=== PATIENT | male | born 1985 | race Hispanic/Latino ===

== ENCOUNTER 2022-07-22 11:09 | Inpatient (IN) | payer OTHER ==
[~2022-07-22] VITALS: Ht 170.2 cm; Wt 87.5 kg
[2022-07-22 11:48] LABS: BASOPHILS % (AUTO) 0.2 % (0.0-5.0); EOSINOPHILS % (AUTO) 0.1 % (0.0-8.0); HEMATOCRIT 41.7 % (42-54); LYMPHOCYTES % (AUTO) 3.3 % (21.0-51.0); MEAN CORPUSCULAR HGB CONC 33.8 g/dL (32.0-36.0); MEAN CORPUSCULAR VOLUME 91.6 fL (79-99); MONOCYTES % (AUTO) 11.5 % (3.0-13.0); PLATELET COUNT (AUTO) 225 K/uL (130-400); RED BLOOD CELL COUNT(AUTO) 4.55 MIL/uL (4.50-6.20); RED CELL DISTRIBUTION WIDTH 12.9 % (11.0-15.5); WHITE BLOOD COUNT (AUTO) 18.4 K/uL (4.8-10.8)
[2022-07-22 11:59] LABS: CREATININE 0.8 mg/dL (0.5-1.5); POTASSIUM 3.3 mmol/L (3.5-5.1)
[2022-07-22 12:01] LABS: APPEARANCE,URINE CLEAR (CLEAR); BILIRUBIN,URINE NEGATIVE (NEGATIVE); COLOR,URINE YELLOW (YELLOW); GLUCOSE, URINE (UA) 200 mg/dL (NEGATIVE); KETONES,URINE 60 mg/dL (NEGATIVE); LEUKOCYTE ESTERASE ,URINE NEGATIVE Leu/uL (NEGATIVE); NITRATE,URINE NEGATIVE (NEGATIVE); OCCULT BLOOD,URINE MODERATE (NEGATIVE); PH,URINE 6.5 (5.0-8.0); PROTEIN,URINE 100 mg/dL (NEGATIVE)
[2022-07-22 12:04] LABS: ALBUMIN 3.1 g/dL (3.5-5.0); TOTAL PROTEIN, SERUM 7.8 g/dL (6.0-8.3)
[2022-07-22 12:08] LABS: AMPHET/METH SCREEN,URINE NEGATIVE (NEGATIVE); BARBITURATE SCREEN, URINE NEGATIVE (NEGATIVE); BENZODIAZEPINES SCREEN,URINE NEGATIVE (NEGATIVE); CANNABINOID SCREEN,URINE NEGATIVE (NEGATIVE); COCAINE SCREEN,URINE NEGATIVE (NEGATIVE); OPIATE SCREEN,URINE POSITIVE (NEGATIVE); PHENCYCLIDINE SCREEN,URINE NEGATIVE (NEGATIVE)
[2022-07-22 12:45] LABS: BACTERIA,URINE RARE /HPF (None Seen); MUCUS,URINE RARE LPF (None Seen); SQUAMOUS EPITHELIAL CELL,UR RARE /HPF (0-2)
[2022-07-22] MEDS ORDERED: MORPHINE 4 MG SYG IVP ONE (13:30)
[2022-07-22] MEDS ORDERED: LABETALOL 20MG VIAL IV ONE (16:00)
[2022-07-22] MEDS ORDERED: 0.9%NACL 1000ML 1,000 ML IV ONE (16:30)
[2022-07-22] MEDS ORDERED: KETOROLAC 30MG VIAL (30MG/ML) IVP ONE (16:30)
[2022-07-22 17:40] LABS: HDL CHOLESTEROL 23 mg/dL (29-71); LDL DIRECT 75 mg/dL (0-99); TRIGLYCERIDES 158 mg/dL (30-200)
[2022-07-22] MEDS ORDERED: IPRATROPIUM/ALBUTEROL SULFATE 3 ML SOLUTION IH PRN (18:00)
[2022-07-22] MEDS ORDERED: FOLIC ACID 5 MG/ML VIAL IV ONE (18:00)
[2022-07-22] MEDS ORDERED: ONDANSETRON 4MG INJ IVP PRN (18:00)
[2022-07-22 18:26] LABS: CHOLESTEROL 142 mg/dL (<200)
[2022-07-22] MEDS ORDERED: HYDRALAZINE 20MG/ML VIAL IV PRN (18:30)
[2022-07-22] MEDS: LACTATED RINGERS 1000ML 1,000 ML IV SCH (18:49)
[2022-07-22] MEDS: ZOSYN 3.375GM +NS 50ML IVPB SCH (18:49)
[2022-07-22] MEDS: 0.9%NACL 50ML IV SCH (18:49)
[2022-07-22] MEDS: PANTOPRAZOLE 40 MG/VIAL IVP SCH (18:49)
[2022-07-22] MEDS ORDERED: MORPHINE 2 MG SYG IVP PRN (19:00)
[2022-07-22] MEDS ORDERED: ALBUTEROL 0.083% 2.5 MG/3 ML INH IH PRN (19:00)
[2022-07-22] MEDS ORDERED: LACTATED RINGERS 1000ML 1,000 ML IV SCH (19:00)
[2022-07-22] MEDS ORDERED: THIAMINE HCL 100 MG/ML 2ML VIAL IVP SCH (19:00)
[2022-07-22 19:02] LABS: PROTHROMBIN TIME 10.9 SEC (9.6-11.6)
[2022-07-22 19:03] LABS: PARTIAL THROMBOPLASTIN TIME 30.3 SEC (26.3-35.5)
[2022-07-22] MEDS: HYDROMORPHONE 0.5 MG SYG (0.5MG/0.5ML) IVP PRN ×2 (19:07→21:43)
[2022-07-22] MEDS: ACETAMINOPHEN 500 MG TABLET PO PRN ×2 (19:07→23:25)
[2022-07-22 19:09] LABS: CREATININE 0.8 mg/dL (0.5-1.5); POTASSIUM 3.2 mmol/L (3.5-5.1)
[2022-07-22 19:12] LABS: MAGNESIUM 2.3 mg/dL (1.80-2.40)
[2022-07-22] MEDS ORDERED: 0.9%NACL 50ML IV SCH (19:30)
[2022-07-22] MEDS ORDERED: ZOSYN 3.375GM +NS 50ML IVPB SCH (19:30)
[2022-07-22] MEDS: POTASSIUM CHLORIDE 20MEQ/100ML 100 ML IV PRN (19:44)
[2022-07-22 19:57] LABS: CRP QUANTITATIVE 356.6 mg/L (0.00-9.0)
[2022-07-22 20:03] LABS: CHOLESTEROL 158 mg/dL (<200); HDL CHOLESTEROL 18 mg/dL (29-71); LDL DIRECT 75 mg/dL (0-99); TRIGLYCERIDES 174 mg/dL (30-200)
[2022-07-22 20:09] LABS: HEMOGLOBIN A1C 5.2 % (4.0-6.0)
[2022-07-22] MEDS: HYDRALAZINE 20MG/ML VIAL IV PRN (20:20)
[2022-07-22] MEDS ORDERED: LORAZEPAM 2 MG/ML 1 ML VIAL IVP ONE (20:30)
[2022-07-22] MEDS ORDERED: LORAZEPAM 0.5 MG TABLET PO ONE (20:30)
[2022-07-22] MEDS: KETOROLAC 15MG/ML VIAL (15MG/ML) IV PRN (20:44)
[2022-07-22] MEDS ORDERED: FAMOTIDINE 20MG VIAL IV SCH (21:00)
[2022-07-22] MEDS ORDERED: PHARMACY COMMUNICATION MISC PRN (21:30)
[2022-07-22] MEDS: NIFEDIPINE ER 30 MG TAB PO SCH (21:44)
[2022-07-23] VITALS (8 sets, daily range): BP systolic 135–171; BP diastolic 75–110
[2022-07-23] MEDS: HYDRALAZINE 25MG TABLET PO SCH ×3 (00:27→16:52)
[2022-07-23] MEDS: HYDROMORPHONE 0.5 MG SYG (0.5MG/0.5ML) IVP PRN ×6 (00:28→22:43)
[2022-07-23] MEDS: LACTATED RINGERS 1000ML 1,000 ML IV SCH ×4 (00:44→19:10)
[2022-07-23] MEDS: 0.9%NACL 50ML IV SCH ×3 (02:08→18:08)
[2022-07-23] MEDS: ZOSYN 3.375GM +NS 50ML IVPB SCH ×3 (02:08→18:08)
[2022-07-23] MEDS: KETOROLAC 15MG/ML VIAL (15MG/ML) IV PRN ×3 (02:36→16:43)
[2022-07-23] MEDS: HYDRALAZINE 20MG/ML VIAL IV PRN (03:14)
[2022-07-23] MEDS ORDERED: LABETALOL 20MG VIAL IV ONE (05:00)
[2022-07-23] MEDS: PANTOPRAZOLE 40 MG/VIAL IVP SCH ×2 (05:05→17:59)
[2022-07-23] MEDS ORDERED: HYDROMORPHONE 0.5 MG SYG (0.5MG/0.5ML) IVP ONE (05:40)
[2022-07-23 06:01] LABS: BASOPHILS % (AUTO) 0.2 % (0.0-5.0); EOSINOPHILS % (AUTO) 0.1 % (0.0-8.0); HEMATOCRIT 39.6 % (42-54); LYMPHOCYTES % (AUTO) 4.2 % (21.0-51.0); MEAN CORPUSCULAR HEMOGLOBIN 30.5 pg (27.0-33.0); MEAN CORPUSCULAR HGB CONC 33.1 g/dL (32.0-36.0); MEAN CORPUSCULAR VOLUME 92.3 fL (79-99); MONOCYTES % (AUTO) 12.3 % (3.0-13.0); NEUTROPHILS % (AUTO) 82.5 % (40.0-77.0); PLATELET COUNT (AUTO) 262 K/uL (130-400); RED BLOOD CELL COUNT(AUTO) 4.29 MIL/uL (4.50-6.20); RED CELL DISTRIBUTION WIDTH 13.2 % (11.0-15.5); WHITE BLOOD COUNT (AUTO) 17.5 K/uL (4.8-10.8)
[2022-07-23 06:16] LABS: ALBUMIN 2.8 g/dL (3.5-5.0); CREATININE 0.9 mg/dL (0.5-1.5); MAGNESIUM 2.3 mg/dL (1.80-2.40); POTASSIUM 3.4 mmol/L (3.5-5.1); TOTAL PROTEIN, SERUM 7.4 g/dL (6.0-8.3)
[2022-07-23] MEDS: POTASSIUM CHLORIDE 20MEQ/100ML 100 ML IV PRN (06:28)
[2022-07-23] MEDS: ACETAMINOPHEN 325 MG TAB PO PRN ×2 (15:00→22:03)
[2022-07-23] MEDS ORDERED: LORAZEPAM 2 MG/ML 1 ML VIAL IVP PRN (18:30)
[2022-07-23] MEDS: METOPROLOL TARTRATE 1 MG/ML 5ML VIAL IV SCH (19:00)
[2022-07-23] MEDS: NIFEDIPINE ER 30 MG TAB PO SCH (20:08)
[2022-07-24] MEDS: KETOROLAC 15MG/ML VIAL (15MG/ML) IV PRN ×3 (00:34→20:37)
[2022-07-24] MEDS: LACTATED RINGERS 1000ML 1,000 ML IV SCH (01:17)
[2022-07-24] MEDS: 0.9%NACL 50ML IV SCH ×3 (02:00→18:07)
[2022-07-24] MEDS: ZOSYN 3.375GM +NS 50ML IVPB SCH ×3 (02:37→18:07)
[2022-07-24] MEDS: METOPROLOL TARTRATE 1 MG/ML 5ML VIAL IV SCH ×3 (02:44→18:07)
[2022-07-24] MEDS: HYDROMORPHONE 0.5 MG SYG (0.5MG/0.5ML) IVP PRN ×2 (02:54→06:57)
[2022-07-24 04:09] VITALS: BP 146/63
[2022-07-24 05:51] LABS: HEMATOCRIT 39.1 % (42-54); MEAN CORPUSCULAR HEMOGLOBIN 30.3 pg (27.0-33.0); MEAN CORPUSCULAR HGB CONC 33.8 g/dL (32.0-36.0); MEAN CORPUSCULAR VOLUME 89.7 fL (79-99); RED BLOOD CELL COUNT(AUTO) 4.36 MIL/uL (4.50-6.20); RED CELL DISTRIBUTION WIDTH 13.2 % (11.0-15.5); WHITE BLOOD COUNT (AUTO) 18.5 K/uL (4.8-10.8)
[2022-07-24] MEDS: PANTOPRAZOLE 40 MG/VIAL IVP SCH ×2 (06:08→18:07)
[2022-07-24 06:10] LABS: ALBUMIN 2.6 g/dL (3.5-5.0); CREATININE 0.9 mg/dL (0.5-1.5); POTASSIUM 3.7 mmol/L (3.5-5.1); TOTAL PROTEIN, SERUM 7.3 g/dL (6.0-8.3)
[2022-07-24] MEDS ORDERED: LORAZEPAM 2 MG/ML 1 ML VIAL IVP PRN (07:30)
[2022-07-24] MEDS ORDERED: PHARMACY COMMUNICATION MISC PRN ×2 (07:30→14:00)
[2022-07-24] MEDS ORDERED: THIAMINE HCL 100 MG, FOLIC ACID 1 MG, M.V.I. IV [ADULT] 10 ML in 0.9%NACL 1000ML 1,000 ML IV SCH (07:30)
[2022-07-24 08:00] VITALS: BP 100/61
[2022-07-24] MEDS: LORAZEPAM 2 MG/ML 1 ML VIAL IVP PRN (10:08)
[2022-07-24] MEDS: THIAMINE HCL 100 MG, FOLIC ACID 1 MG in 0.9%NACL 1000ML 1,000 ML IV SCH ×2 (10:11→14:12)
[2022-07-24 11:54] VITALS: BP 114/79
[2022-07-24] MEDS ORDERED: IOHEXOL 350 MG/ML 100ML INFUS..BTL IV ONE (15:10)
[2022-07-24 16:00] VITALS: BP 159/94
[2022-07-24] MEDS: NIFEDIPINE ER 30 MG TAB PO SCH (20:37)
[2022-07-24] MEDS: ACETAMINOPHEN 325 MG TAB PO PRN (20:39)
[2022-07-24 21:10] VITALS: BP 147/87
[2022-07-24 23:54] VITALS: BP 139/88
[2022-07-25] VITALS: BP 158/95
[2022-07-25] MEDS: LORAZEPAM 2 MG/ML 1 ML VIAL IVP PRN (01:05)
[2022-07-25] MEDS: METOPROLOL TARTRATE 1 MG/ML 5ML VIAL IV SCH ×3 (02:05→17:00)
[2022-07-25] MEDS: ZOSYN 3.375GM +NS 50ML IVPB SCH ×3 (02:05→16:59)
[2022-07-25] MEDS: 0.9%NACL 50ML IV SCH ×3 (02:05→16:59)
[2022-07-25] MEDS: KETOROLAC 15MG/ML VIAL (15MG/ML) IV PRN ×3 (02:29→21:09)
[2022-07-25 04:23] VITALS: BP 150/88
[2022-07-25] MEDS: PANTOPRAZOLE 40 MG/VIAL IVP SCH ×2 (05:30→16:59)
[2022-07-25 06:47] LABS: HEMATOCRIT 35.1 % (42-54); MEAN CORPUSCULAR HEMOGLOBIN 30.3 pg (27.0-33.0); MEAN CORPUSCULAR HGB CONC 33.6 g/dL (32.0-36.0); MEAN CORPUSCULAR VOLUME 90.2 fL (79-99); RED BLOOD CELL COUNT(AUTO) 3.89 MIL/uL (4.50-6.20); RED CELL DISTRIBUTION WIDTH 13.6 % (11.0-15.5); WHITE BLOOD COUNT (AUTO) 15.4 K/uL (4.8-10.8)
[2022-07-25 07:05] LABS: CREATININE 0.8 mg/dL (0.5-1.5); POTASSIUM 3.2 mmol/L (3.5-5.1); TOTAL PROTEIN, SERUM 6.3 g/dL (6.0-8.3)
[2022-07-25 07:34] VITALS: BP 156/97
[2022-07-25] MEDS: ACETAMINOPHEN 325 MG TAB PO PRN (08:19)
[2022-07-25] MEDS: THIAMINE HCL 100 MG, FOLIC ACID 1 MG in 0.9%NACL 1000ML 1,000 ML IV SCH ×2 (10:00→13:15)
[2022-07-25] MEDS: HYDROMORPHONE 0.5 MG SYG (0.5MG/0.5ML) IVP PRN (11:05)
[2022-07-25 11:14] VITALS: BP 143/79
[2022-07-25] MEDS ORDERED: KCL 20 MEQ ERTAB PO ONE (12:54)
[2022-07-25 16:12] VITALS: BP 149/92
[2022-07-25] MEDS: KCL 20 MEQ ERTAB PO PRN ×3 (16:59→23:20)
[2022-07-25 20:00] VITALS: BP 158/99
[2022-07-25] MEDS: NIFEDIPINE ER 30 MG TAB PO SCH (21:08)
[2022-07-26] VITALS: BP 158/95
[2022-07-26] MEDS: METOPROLOL TARTRATE 1 MG/ML 5ML VIAL IV SCH ×3 (01:48→17:03)
[2022-07-26] MEDS: 0.9%NACL 50ML IV SCH ×3 (01:48→17:03)
[2022-07-26] MEDS: ZOSYN 3.375GM +NS 50ML IVPB SCH ×3 (01:48→17:03)
[2022-07-26 04:00] VITALS: BP 124/75
[2022-07-26 04:41] LABS: BASOPHILS % (AUTO) 0.3 % (0.0-5.0); EOSINOPHILS % (AUTO) 0.3 % (0.0-8.0); HEMATOCRIT 36.1 % (42-54); MEAN CORPUSCULAR HGB CONC 33.2 g/dL (32.0-36.0); MEAN CORPUSCULAR VOLUME 90.3 fL (79-99); MONOCYTES % (AUTO) 12.7 % (3.0-13.0); NEUTROPHILS % (AUTO) 73.1 % (40.0-77.0); PLATELET COUNT (AUTO) 364 K/uL (130-400); RED CELL DISTRIBUTION WIDTH 13.4 % (11.0-15.5); WHITE BLOOD COUNT (AUTO) 17.3 K/uL (4.8-10.8)
[2022-07-26 05:06] LABS: ALBUMIN 2.2 g/dL (3.5-5.0); CREATININE 0.9 mg/dL (0.5-1.5); POTASSIUM 3.8 mmol/L (3.5-5.1); TOTAL PROTEIN, SERUM 6.8 g/dL (6.0-8.3)
[2022-07-26 05:26] LABS: CRP QUANTITATIVE 189.5 mg/L (0.00-9.0)
[2022-07-26 06:06] LABS: ERYTHROCYTE SEDIMENTATION RATE 99 MM/HR (0-15)
[2022-07-26 07:30] VITALS: BP 130/77
[2022-07-26] MEDS: PANTOPRAZOLE 40 MG/VIAL IVP SCH ×2 (09:22→17:03)
[2022-07-26] MEDS ORDERED: PHARMACY COMMUNICATION MISC SCH (10:30)
[2022-07-26 11:27] VITALS: BP 142/85
[2022-07-26 15:36] VITALS: BP 138/86
[2022-07-26 20:00] VITALS: BP 153/91
[2022-07-26] MEDS: NIFEDIPINE ER 30 MG TAB PO SCH (20:59)
[2022-07-27] VITALS: BP 144/85
[2022-07-27] MEDS: ZOSYN 3.375GM +NS 50ML IVPB SCH ×3 (03:00→17:49)
[2022-07-27] MEDS: 0.9%NACL 50ML IV SCH ×3 (03:00→17:41)
[2022-07-27] MEDS: METOPROLOL TARTRATE 1 MG/ML 5ML VIAL IV SCH ×3 (03:01→10:30)
[2022-07-27 04:00] VITALS: BP 133/91
[2022-07-27 05:10] LABS: BASOPHILS % (AUTO) 0.4 % (0.0-5.0); EOSINOPHILS % (AUTO) 0.7 % (0.0-8.0); HEMATOCRIT 37.3 % (42-54); LYMPHOCYTES % (AUTO) 8.2 % (21.0-51.0); MEAN CORPUSCULAR HEMOGLOBIN 30.1 pg (27.0-33.0); MEAN CORPUSCULAR HGB CONC 33.2 g/dL (32.0-36.0); MEAN CORPUSCULAR VOLUME 90.5 fL (79-99); NEUTROPHILS % (AUTO) 75.3 % (40.0-77.0); PLATELET COUNT (AUTO) 438 K/uL (130-400); RED BLOOD CELL COUNT(AUTO) 4.12 MIL/uL (4.50-6.20); RED CELL DISTRIBUTION WIDTH 13.2 % (11.0-15.5); WHITE BLOOD COUNT (AUTO) 21.2 K/uL (4.8-10.8)
[2022-07-27 05:27] LABS: ALBUMIN 2.4 g/dL (3.5-5.0); CREATININE 1.1 mg/dL (0.5-1.5); POTASSIUM 4.4 mmol/L (3.5-5.1); TOTAL PROTEIN, SERUM 7.4 g/dL (6.0-8.3)
[2022-07-27 05:54] LABS: CRP QUANTITATIVE 165.5 mg/L (0.00-9.0)
[2022-07-27] MEDS: PANTOPRAZOLE 40 MG/VIAL IVP SCH ×2 (05:58→17:49)
[2022-07-27 12:00] VITALS: BP 121/67
[2022-07-27 16:00] VITALS: BP 130/88
[2022-07-27 20:00] VITALS: BP 151/84
[2022-07-27] MEDS: NIFEDIPINE ER 30 MG TAB PO SCH (20:44)
[2022-07-27 23:30] VITALS: BP 142/84
[2022-07-28] MEDS: ZOSYN 3.375GM +NS 50ML IVPB SCH ×2 (02:14→10:12)
[2022-07-28] MEDS: 0.9%NACL 50ML IV SCH ×3 (02:19→19:24)
[2022-07-28 04:00] VITALS: BP 133/69
[2022-07-28 04:57] LABS: BASOPHILS % (AUTO) 0.4 % (0.0-5.0); EOSINOPHILS % (AUTO) 0.5 % (0.0-8.0); HEMATOCRIT 38.3 % (42-54); MEAN CORPUSCULAR HGB CONC 32.4 g/dL (32.0-36.0); MEAN CORPUSCULAR VOLUME 92.5 fL (79-99); MONOCYTES % (AUTO) 8.9 % (3.0-13.0); NEUTROPHILS % (AUTO) 78.3 % (40.0-77.0); PLATELET COUNT (AUTO) 480 K/uL (130-400); RED BLOOD CELL COUNT(AUTO) 4.14 MIL/uL (4.50-6.20); RED CELL DISTRIBUTION WIDTH 13.3 % (11.0-15.5); WHITE BLOOD COUNT (AUTO) 23.2 K/uL (4.8-10.8)
[2022-07-28 05:16] LABS: ALBUMIN 2.4 g/dL (3.5-5.0); CREATININE 1.2 mg/dL (0.5-1.5); CRP QUANTITATIVE 146.6 mg/L (0.00-9.0); POTASSIUM 4.4 mmol/L (3.5-5.1); TOTAL PROTEIN, SERUM 7.6 g/dL (6.0-8.3)
[2022-07-28] MEDS: PANTOPRAZOLE 40 MG/VIAL IVP SCH ×2 (05:26→19:24)
[2022-07-28 08:00] VITALS: BP 135/63
[2022-07-28] MEDS: LISINOPRIL 10 MG TABLET PO SCH (08:28)
[2022-07-28] MEDS: MEROPENEM 1 GM VIAL IVPB SCH ×2 (10:55→19:24)
[2022-07-28 12:00] VITALS: BP 141/83
[2022-07-28 16:00] VITALS: BP 135/85
[2022-07-28 20:18] VITALS: BP 137/81
[2022-07-28] MEDS: NIFEDIPINE ER 30 MG TAB PO SCH (22:29)
[2022-07-28 23:27] VITALS: BP 115/67
[2022-07-29] MEDS: 0.9%NACL 50ML IV SCH (02:10)
[2022-07-29] MEDS: MEROPENEM 1 GM VIAL IVPB SCH ×3 (02:10→18:36)
[2022-07-29 03:57] VITALS: BP 129/90
[2022-07-29] MEDS: PANTOPRAZOLE 40 MG/VIAL IVP SCH ×2 (05:23→18:36)
[2022-07-29 08:00] VITALS: BP 109/70
[2022-07-29] MEDS: LISINOPRIL 10 MG TABLET PO SCH (09:37)
[2022-07-29 10:29] LABS: CREATININE 1.1 mg/dL (0.5-1.5); CRP QUANTITATIVE 114.7 mg/L (0.00-9.0); TOTAL PROTEIN, SERUM 8.7 g/dL (6.0-8.3)
[2022-07-29 11:24] LABS: ERYTHROCYTE SEDIMENTATION RATE 88 MM/HR (0-15)
[2022-07-29 11:27] LABS: BASOPHILS % (AUTO) 0.5 % (0.0-5.0); HEMATOCRIT 43.6 % (42-54); LYMPHOCYTES % (AUTO) 10.2 % (21.0-51.0); MEAN CORPUSCULAR HEMOGLOBIN 30.4 pg (27.0-33.0); MEAN CORPUSCULAR VOLUME 92.2 fL (79-99); MONOCYTES % (AUTO) 5.2 % (3.0-13.0); NEUTROPHILS % (AUTO) 78.7 % (40.0-77.0); PLATELET COUNT (AUTO) 686 K/uL (130-400); RED BLOOD CELL COUNT(AUTO) 4.73 MIL/uL (4.50-6.20); RED CELL DISTRIBUTION WIDTH 13.2 % (11.0-15.5); WHITE BLOOD COUNT (AUTO) 20.4 K/uL (4.8-10.8)
[2022-07-29 12:00] VITALS: BP 128/76
[2022-07-29 16:00] VITALS: BP 134/84
[2022-07-29 19:30] VITALS: BP 132/74
[2022-07-29] MEDS: NIFEDIPINE ER 30 MG TAB PO SCH (19:30)
[2022-07-29 23:00] VITALS: BP 105/67
[2022-07-30] MEDS: 0.9%NACL 50ML IV SCH ×2 (01:10→18:01)
[2022-07-30] MEDS: MEROPENEM 1 GM VIAL IVPB SCH ×3 (02:18→18:00)
[2022-07-30 04:00] VITALS: BP 116/54
[2022-07-30] MEDS: PANTOPRAZOLE 40 MG/VIAL IVP SCH ×2 (05:27→18:00)
[2022-07-30 05:58] LABS: BASOPHILS % (AUTO) 0.4 % (0.0-5.0); EOSINOPHILS % (AUTO) 1.5 % (0.0-8.0); HEMATOCRIT 39.2 % (42-54); LYMPHOCYTES % (AUTO) 11.7 % (21.0-51.0); MEAN CORPUSCULAR HEMOGLOBIN 29.8 pg (27.0-33.0); MEAN CORPUSCULAR HGB CONC 32.9 g/dL (32.0-36.0); MEAN CORPUSCULAR VOLUME 90.5 fL (79-99); MONOCYTES % (AUTO) 8.5 % (3.0-13.0); NEUTROPHILS % (AUTO) 73.3 % (40.0-77.0); PLATELET COUNT (AUTO) 615 K/uL (130-400); RED BLOOD CELL COUNT(AUTO) 4.33 MIL/uL (4.50-6.20); RED CELL DISTRIBUTION WIDTH 12.9 % (11.0-15.5)
[2022-07-30 06:13] LABS: ALBUMIN 2.7 g/dL (3.5-5.0); CREATININE 1.1 mg/dL (0.5-1.5); POTASSIUM 4.6 mmol/L (3.5-5.1); TOTAL PROTEIN, SERUM 7.9 g/dL (6.0-8.3)
[2022-07-30 07:30] VITALS: BP 121/66
[2022-07-30] MEDS: LISINOPRIL 10 MG TABLET PO SCH (10:10)
[2022-07-30 10:48] VITALS: BP 128/83
[2022-07-30 15:30] VITALS: BP 131/79
[2022-07-30 20:00] VITALS: BP 123/79
[2022-07-30] MEDS: NIFEDIPINE ER 30 MG TAB PO SCH (20:17)
[2022-07-31] VITALS: BP 116/74
[2022-07-31] MEDS: 0.9%NACL 50ML IV SCH ×2 (01:40→10:00)
[2022-07-31] MEDS: MEROPENEM 1 GM VIAL IVPB SCH ×2 (02:05→08:59)
[2022-07-31 04:00] VITALS: BP 106/59
[2022-07-31 05:12] LABS: HEMATOCRIT 38.7 % (42-54); MEAN CORPUSCULAR HEMOGLOBIN 29.8 pg (27.0-33.0); MEAN CORPUSCULAR HGB CONC 33.1 g/dL (32.0-36.0); MEAN CORPUSCULAR VOLUME 90.2 fL (79-99); RED BLOOD CELL COUNT(AUTO) 4.29 MIL/uL (4.50-6.20); WHITE BLOOD COUNT (AUTO) 13.2 K/uL (4.8-10.8)
[2022-07-31 05:34] LABS: CREATININE 1.3 mg/dL (0.5-1.5); POTASSIUM 4.9 mmol/L (3.5-5.1)
[2022-07-31] MEDS: PANTOPRAZOLE 40 MG/VIAL IVP SCH (06:04)
[2022-07-31 07:19] VITALS: BP 112/72
[2022-07-31] MEDS ORDERED: NIFE-40 PO (08:42)
[2022-07-31] MEDS: LISINOPRIL 10 MG TABLET PO SCH (08:58)
[2022-07-31 11:12] VITALS: BP 116/65
== END 2022-07-31 12:45 | disposition home or self-care (01) | DRG 871 ==
LOC: EDH 11:09 → INTOOBSV 11:10 → EDHIP 11:10 → OBSVTOIN 11:10 → EDHIP 17:55 → UNDOADMIN 17:55 → 4DH 07-23 02:45
PROVIDERS: ADMIT Hospitalist; ATTEND Hospitalist
DX: A41.9 Sepsis, unspecified organism (principal); K85.90 Acute pancreatitis without necrosis or infection, unspecified; E87.1 Hypo-osmolality and hyponatremia; K83.09 Other cholangitis; Z20.822 Contact with and (suspected) exposure to COVID-19; E86.1 Hypovolemia; E88.89 Other specified metabolic disorders; I16.0 Hypertensive urgency; E66.9 Obesity, unspecified; F10.10 Alcohol abuse, uncomplicated; Z68.30 Body mass index [BMI] 30.0-30.9, adult; I10 Essential (primary) hypertension; Z53.29 Procedure and treatment not carried out because of patient's decision for other reasons; Z79.899 Other long term (current) drug therapy; Z90.49 Acquired absence of other specified parts of digestive tract
CPT/HCPCS: 36415; 71045; 74170; 74176; 76705; 80048; 80053; 80061; 80305; 81001; 82140; 82550; 83036; 83605; 83690; 83735; 84145; 85025; 85027; 85610; 85651; 85730; 86140; 87040; 87635; 87804; 94664; C9113; G0378; J0360; J1170; J1885; J2060; J2185; J2270; J2543; J3411; J3480; J3490; J7030; J7120; Q9967